=== PATIENT | female | born 1950 | race Caucasian/White ===

== ENCOUNTER 2019-06-07 00:26 | Day surgery (SDC) | payer MEDICARE, SELFPAY ==
[2019-05-27 09:54] VITALS: BMI 32.3
[2019-06-07] VITALS (12 sets, daily range): BP systolic 109–132; BP diastolic 60–77; PULSE 70–96; RESP 12–20; TEMP 36.2–36.4; O2SAT 91–98
[2019-06-07] MEDS: LACTATED RINGERS 1,000 ML 30 ML IV CONT ×2 (06:55→08:37)
--- NOTE | 2019-06-07 06:58 | WPDHPUPDATE1 ---
History and Physical Update Update Date/Time: 06/07/19 06:58 History and Physical has been reviewed, including an updated exam of the patient. There are NO changes in the patient's condition. Risks, benefits, and alternatives have been discussed and questions answered. Patient agrees to proceed with procedure.
--- NOTE | 2019-06-07 07:01 | WPDANESEPPF ---
Anes - Initial Pre Proc Eval Procedure: Operation Date: 06/07/19 07:30 Proposed Procedures p Left Breast Fat Grafting(Left) - Gilmer Dorman MD Date/Time: 06/07/19 07:01 Surgeon: Gilmer Dorman MD Pre Op Diagnosis: Hx Of Breast Ca Patient Data Age: 69 Gender: F Height: 5 ft 4 in Weight: 85.3 kg Allergies Allergy/AdvReac Type Severity Reaction Status Date / Time clindamycin Allergy Mild REDNESS AT Verified 05/27/19 09:36 SITE ampicillin Allergy Unknown Rash Verified 05/27/19 09:36 aspirin Allergy Unknown Rash AND Verified 05/27/19 09:36 UPSET STOMACH codeine Allergy Unknown Rash Verified 05/27/19 09:36 erythromycin base Allergy Unknown Rash Verified 05/27/19 09:36 Penicillins Allergy Unknown Rash Verified 05/27/19 09:36 Dairy Allergy Severe Diarrhea Uncoded 05/27/19 09:36 Home Medications Medication Instructions Recorded Confirmed Type alendronate 70 mg tablet 70 mg PO WEEKLY 05/15/19 05/27/19 History cyanocobalamin (vitamin B-12) 100 mcg SUB-Q MONTHLY 05/15/19 05/27/19 History 1,000 mcg/mL injection solution fluoxetine 40 mg capsule 40 mg PO DAILY 05/15/19 05/27/19 History hydrocodone 5 mg-acetaminophen 325 1 tablet PO Q6H PRN #15 tablet 05/15/19 05/27/19 Rx mg tablet omeprazole 10 mg capsule,delayed 10 mg PO DAILY 05/15/19 05/27/19 History release ondansetron HCl 4 mg tablet 4 mg PO Q6H PRN #30 tablet 05/15/19 05/27/19 Rx amitriptyline 25 mg PO HS 05/27/19 05/27/19 History Patient hx anesthesia problems: none Family hx anesthesia problems: none PMFSH Past Medical History Medical History (Updated 06/07/19 @ 07:02 by Rui Stack MD) Hyperlipidemia Sleep apnea Surgical History Surgical History (Updated 05/15/19 @ 10:15 by Gilmer Dorman MD) H/O left mastectomy History of appendectomy History of cholecystectomy History of ERCP Anes - Eval Final PreProcedure Day of Procedure 06/07/19 07:01 Patient weight: overweight Heart: regular rate and rhythm Lungs: clear to auscultation Airway: Mallampati scale class III Neurological: alert and oriented Last oral intake: >/= 8 hours ASA classification: III Emergent: no Anesthetic plan: proceed Anesthesia type and monitoring: general LMA and standard monitoring Informed Consent: The patient's anesthetic plan and its attendant risks and benefits were discussed with the patient/family/POA. Questions were solicited and answers provided to the satisfaction of the patient/family/POA.
[2019-06-07] MEDS: SCOPOLAMINE 1.5 MG PATCH TRANSDERM (07:20)
[2019-06-07 07:21] LABS: Urine Cotinine NEGATIVE
[2019-06-07] MEDS: ceFAZolin 2 GM/D5W 50 ML 2 GM/50 ML BAG IVPB (07:32)
--- NOTE | 2019-06-07 08:28 | SUR.OPER ---
EBL:5CC
--- NOTE | 2019-06-07 08:44 | P.OP_ITS ---
Procedure Note - Detailed Date of procedure: 06/07/19 Pre-op diagnosis: Hx Of Breast Ca Post-op diagnosis: same Procedure performed: Left breast fat grafting (reconstruction by other method) 130cc Description of procedure: Preoperatively the risks, benefits, alternatives were discussed in extensive detail. I want her to be very realistic about the risks involved as well as expectations. She understands the staged procedure. She understands this is unique procedure with unique risks and unique outcomes. She feels like her last procedure and significant improvement she would like proceed. All questions answered to her and her family satisfaction and consent was obtained. Patient was marked in the preoperative holding area with her verification. She was taken to the operating room placed supine on operating room table. Anesthe chris was provided by anesthesiology and prepped and draped in standard sterile fashion. Surgical time-out was taken. Three separate stab incisions were made with a 16 gauge needle. A completed 1 L of tumescent on the abdomen to give adequate time for hemostasis. Using a multi hole 3 mm cannula for fat grafting suction lipectomy was completed multiple planes and passes and introduced into a gravity separation device. Once we had adequate time for complete separation we took the central portion leaving the inferior fluid and superiorly lipid and only taking adipose tissue. Eleven blade was used to excise the previous scar locations on the breast which was little bit of tattooing dramatically. This was completely removed as well as made an additional port site. I then used a 2.1 mm cannula on multiple planes and passes. The single hole cannula and introduced 130 cc of adipose tissue to the left breast. These sites on the breast were closed with single 5 0 nylon. Dressings were placed as well as an abdominal binder. Patient was woken taken PACU without difficulty. All instrument sponge counts were correct at the end of the case. Anesthesia: GLMA Surgeon: Gilmer Dorman MD Estimated blood loss (mL): 1 Drains: No Packing: No Pathology: none sent Complications: No immediate complications Condition: stable Disposition: PACU
== END 2019-06-07 11:35 | disposition home or self-care (01) ==
PROVIDERS: PCP Internal Medicine; Visit Provider Surgery Plastic and Reconstructive Surgery
PROC: (CPT 15769; principal; 2019-06-07 07:30)
DX: Z42.1 Encounter for breast reconstruction following mastectomy (principal); Z85.3 Personal history of malignant neoplasm of breast; Z90.12 Acquired absence of left breast and nipple; E78.5 Hyperlipidemia, unspecified; G47.30 Sleep apnea, unspecified; Z79.82 Long term (current) use of aspirin; Z79.899 Other long term (current) drug therapy
CPT/HCPCS: 19366; 36415; 80307; A9270; J0171; J0690; J1100; J2250; J2370; J2405; J2704; J3010; J7120

== ENCOUNTER 2019-10-23 00:30 | Outpatient (CLI) | payer MEDICARE, SELFPAY ==
[2019-10-23 18:10] LABS: SARS-CoV-2 RNA PCR Negative
== END 2019-10-23 00:31 | disposition home or self-care (01) ==
LOC: ANHCOVIDDT 00:31
PROVIDERS: Visit Provider Surgery Plastic and Reconstructive Surgery
DX: Z20.828 Contact with and (suspected) exposure to other viral communicable diseases (principal); Z01.812 Encounter for preprocedural laboratory examination
CPT/HCPCS: 87635; C9803; U0003

== ENCOUNTER 2019-10-25 03:22 | Day surgery (SDC) | payer MEDICARE, SELFPAY ==
[2019-10-21 14:01] VITALS: BMI 32.3
--- NOTE | 2019-10-24 11:45 | WPDANESEPPF ---
Anes - Initial Pre Proc Eval Procedure: Operation Date: 10/25/19 07:30 Proposed Procedures p Left Breast Fat Grafting - Gilmer Dorman MD Date/Time: 10/24/19 11:45 Surgeon: Gilmer Dorman MD Pre Op Diagnosis: acquired breast deformity Patient Data Age: 69 Gender: F Height: 5 ft 4 in Weight: 85.5 kg Allergies Allergy/AdvReac Type Severity Reaction Status Date / Time clindamycin Allergy Mild REDNESS AT Verified 10/21/19 13:52 SITE ampicillin Allergy Unknown Rash Verified 10/21/19 13:52 aspirin Allergy Unknown Rash AND Verified 10/21/19 13:52 UPSET STOMACH codeine Allergy Unknown Rash Verified 10/21/19 13:52 erythromycin base Allergy Unknown Rash Verified 10/21/19 13:52 Penicillins Allergy Unknown Rash Verified 10/21/19 13:52 Dairy Allergy Severe Diarrhea Uncoded 10/21/19 13:52 Home Medications Medication Instructions Recorded Confirmed Type alendronate 70 mg tablet 70 mg PO WEEKLY 05/15/19 10/21/19 History cyanocobalamin (vitamin B-12) 100 mcg SUB-Q MONTHLY 05/15/19 10/21/19 History 1,000 mcg/mL injection solution fluoxetine 40 mg capsule 40 mg PO DAILY 05/15/19 10/21/19 History omeprazole 10 mg capsule,delayed 10 mg PO DAILY 05/15/19 10/21/19 History release ondansetron HCl 4 mg tablet 4 mg PO Q6H PRN #30 tablet 05/15/19 10/21/19 Rx amitriptyline 25 mg PO HS 05/27/19 10/21/19 History docusate sodium 100 mg capsule 100 mg PO BID #14 cap 10/16/19 10/21/19 Rx hydrocodone 5 mg-acetaminophen 325 1 tablet PO Q6H PRN #15 tablet 10/16/19 10/21/19 Rx mg tablet Patient hx anesthesia problems: post op nausea/vomiting Family hx anesthesia problems: none Anes - Eval Final PreProcedure Day of Procedure 10/24/19 11:45 Patient weight: normal Heart: regular rate and rhythm Lungs: clear to auscultation Airway: Mallampati scale class III Neurological: alert and oriented Last oral intake: >/= 8 hours ASA classification: III Emergent: no Anesthesia type and monitoring: general LMA and standard monitoring Informed Consent: The patient's anesthetic plan and its attendant risks and benefits were discussed with the patient/family/POA. Questions were solicited and answers provided to the satisfaction of the patient/family/POA.
[2019-10-25] VITALS (15 sets, daily range): BP systolic 118–174; BP diastolic 66–112; PULSE 63–90; RESP 12–18; TEMP 36.1–36.8; O2SAT 92–100
--- NOTE | 2019-10-25 06:35 | WPDHPUPDATE1 ---
History and Physical Update Update Date/Time: 10/25/19 06:35 History and Physical has been reviewed, including an updated exam of the patient. There are NO changes in the patient's condition. Risks, benefits, and alternatives have been discussed and questions answered. Patient agrees to proceed with procedure.
[2019-10-25 06:41] LABS: Urine Cotinine NEGATIVE
[2019-10-25] MEDS: LACTATED RINGERS 1,000 ML 30 ML IV CONT ×2 (06:50→09:02)
[2019-10-25] MEDS: ONDANSETRON INJ 4 MG/2 ML VIAL IV PUSH (07:20)
[2019-10-25] MEDS: SCOPOLAMINE 1.5 MG PATCH TRANSDERM (07:20)
[2019-10-25] MEDS: ceFAZolin 2 GM/D5W 50 ML 2 GM/50 ML BAG IVPB (07:26)
--- NOTE | 2019-10-25 07:29 | PM.PROC ---
Procedure Note - Detailed Date of procedure: 10/25/19 Pre-op diagnosis: acquired breast deformity Post-op diagnosis: same Procedure performed: Fat grafting left breast Description of procedure: Preoperatively the risks, benefits, alternatives were discussed in extensive detail. I want her to be very realistic about the risks involved as well as expectations. She understands the staged procedure. She understands this is unique procedure with unique risks and unique outcomes. She feels like her last procedure and significant improvement she would like proceed. Shewas going to utilize a suction device prior to the procedure however admits she has not been wearing this like she should All questions answered to her and her family satisfaction and consent was obtained. Patient was marked in the preoperative holding area with her verification. She was taken to the operating room placed supine on operating room table. Anesthesia was provided by anesthesiology and prepped and draped in standard sterile fashion. Surgical time-out was taken. Three separate stab incisions were made with a 16 gauge needle. A completed 1 L of tumescent on the abdomen to give adequate time for hemostasis. Using a multi hole 3 mm cannula for fat grafting suction lipectomy was completed multiple planes and passes and introduced into a gravity separation device. Once we had adequate time for complete separation we took the central portion leaving the inferior fluid and superiorly lipid and only taking adipose tissue. Used an 18 guage to make port sites for fat grafting I then used a 2.1 mm cannula on multiple planes and passes. The single hole cannula and introduced adipose tissue to the left breast. Dressings were placed as well as an abdominal binder. Patient was woken taken PACU without difficulty. All instrument sponge counts were correct at the end of the case. Anesthesia: GLMA Surgeon: Gilmer Dorman MD Estimated blood loss (mL): 5 Drains: No Packing: No Pathology: none sent Complications: No immediate complications Condition: stable Disposition: PACU Findings: Suction completed from lower abdomen. 150cc fat infiltrated left breast.
--- NOTE | 2019-10-25 08:53 | SUR.OPER ---
EBL:5cc
--- NOTE | 2019-10-25 09:19 | SUR.PHASEI ---
0905 pt has a welt around the iv site in rt arm, dr woods thinks it is from the zofran that was given in the or, 25mg iv benadryl was given to counteract, no other issues at this time
--- NOTE | 2019-10-25 12:01 | SUR.PHASEII ---
PT GETTING DRESSED WHEN SHE NOTICED LOWER ABDOMINAL BLEEDING. OPEN PUNCTURE NOTED IN MID-LOWER ABDOMEN SITE OF BLEEDING. DR. DAVENPORT NOTIFIED; APPLIED PRESSURE X 10 WHICH STOPPED BLEEDING BUT WHEN PT STOOD UP, BLEEDING RESUMED. REAPPLIED PRESSURE. DR. DAVENPORT NOTIFIED. DR. DAVENPORT WILL EXAMINE PT WHEN OUT OF THE OR IN ABOUT 2 HOURS. REGULAR DIET ORDER OBTAINED. CALLED FOR LUNCH. PT DENIES PAIN. DAUGHTER UPDATED X 4.
--- NOTE | 2019-10-25 15:07 | PM.EVENT ---
Event Note Event Note Event Note: Called to bedside with drainage from abdominal sites. Patient feels well. No CP, no SOB. Feeling well. On exam there is no hematoma, no seroma. No evidence of active bleeding. Pulse normal. Plan for d/c home. Patient knows what to monitor for. Will call with any questions or concerns.
--- NOTE | 2019-10-25 15:46 | SUR.PHASEII ---
1211 LEFT CHEST DRESSING SOAKED WITH DELORIS FLUID; CHANGED. AWAITING DR. POWELL. DAUGHTER UPDATED.
--- NOTE | 2019-10-25 16:03 | SUR.PHASEII ---
0690 DR. BARRETO HERE TO SEE PT. OKAY'D PT TO GO HOME. ALL DRESSINGS CHANGED. LARGE MENSTRUAL PADS TO ABDOMEN.
== END 2019-10-25 14:20 | disposition home or self-care (01) ==
PROVIDERS: Visit Provider Surgery Plastic and Reconstructive Surgery
PROC: (CPT 15769; principal; 2019-10-25 07:30)
DX: Z42.1 Encounter for breast reconstruction following mastectomy (principal); Z85.3 Personal history of malignant neoplasm of breast; Z90.12 Acquired absence of left breast and nipple; E78.5 Hyperlipidemia, unspecified; G47.30 Sleep apnea, unspecified; Z79.899 Other long term (current) drug therapy
CPT/HCPCS: 19366; 36415; 80307; A9270; J0171; J0690; J1100; J1170; J1200; J2250; J2405; J2704; J3010; J7120

== ENCOUNTER 2020-01-29 01:48 | Outpatient (CLI) | payer MEDICARE, SELFPAY ==
[2020-01-29 18:40] LABS: SARS-CoV-2 RNA PCR Negative
== END 2020-01-29 01:49 | disposition home or self-care (01) ==
LOC: ANHCOVIDDT 01:49
PROVIDERS: Visit Provider Surgery Plastic and Reconstructive Surgery
DX: Z01.812 Encounter for preprocedural laboratory examination (principal); Z11.59 Encounter for screening for other viral diseases
CPT/HCPCS: 87635; C9803; U0003

== ENCOUNTER 2020-01-31 00:37 | Day surgery (SDC) | payer MEDICARE, SELFPAY ==
[2020-01-24 09:29] VITALS: BMI 33.5
[2020-01-31] VITALS (9 sets, daily range): BP systolic 111–143; BP diastolic 67–89; PULSE 76–89; RESP 12–20; TEMP 36.3–36.5; O2SAT 93–100
--- NOTE | 2020-01-31 08:33 | WPDANESEPPF ---
Anes - Initial Pre Proc Eval Procedure: Operation Date: 01/31/20 09:30 Proposed Procedures p Left Breast Fat Grafting - Gilmer Dorman MD Date/Time: 01/31/20 08:33 Surgeon: Gilmer Dorman MD Pre Op Diagnosis: hx breast ca Patient Data Age: 70 Gender: F Height: 5 ft 4 in Weight: 87.7 kg Allergies Allergy/AdvReac Type Severity Reaction Status Date / Time ampicillin Allergy Intermediate Rash Verified 01/31/20 08:00 aspirin Allergy Intermediate Rash AND Verified 01/31/20 08:00 UPSET STOMACH codeine Allergy Intermediate Rash Verified 01/31/20 08:00 erythromycin base Allergy Intermediate Rash Verified 01/31/20 08:00 Penicillins Allergy Intermediate Rash Verified 01/31/20 08:00 clindamycin Allergy Mild REDNESS AT Verified 01/31/20 08:00 SITE Dairy Allergy Severe Diarrhea Uncoded 01/31/20 08:00 Home Medications Medication Instructions Recorded Confirmed Type alendronate 70 mg tablet 70 mg PO WEEKLY 05/15/19 01/31/20 History fluoxetine 40 mg capsule 40 mg PO DAILY 05/15/19 01/31/20 History omeprazole 10 mg capsule,delayed 10 mg PO DAILY 05/15/19 01/31/20 History release amitriptyline 25 mg PO HS 05/27/19 01/31/20 History potassium chloride 20 mEq 20 meq PO DAILY 11/27/19 01/31/20 History tablet,extended release(part/cryst) quetiapine 25 mg tablet 25 mg PO PRN PRN tablet 11/27/19 01/31/20 History docusate sodium 100 mg capsule 100 mg PO BID #14 cap 01/20/20 01/24/20 Rx hydrocodone 5 mg-acetaminophen 325 1 tablet PO Q6H PRN #15 tablet 01/20/20 01/24/20 Rx mg tablet ondansetron HCl 4 mg tablet 4 mg PO Q6H PRN #30 tablet 01/20/20 01/24/20 Rx Laboratory Tests 01/31/20 08:13 Cotinine Pending Patient hx anesthesia problems: post op nausea/vomiting Family hx anesthesia problems: none PMFSH Social History Social History Smoking status: Former smoker Additional smoking assessment comments: 1PK/WEEK/30YRS, QUIT 2017 Alcohol intake: never Substance use: never Living arrangements: alone Spiritual care concerns: No Anes - Eval Final PreProcedure Day of Procedure 01/31/20 08:33 Patient weight: normal Heart: regular rate and rhythm Lungs: clear to auscultation Airway: Mallampati scale class III Neurological: alert and oriented Last oral intake: >/= 8 hours ASA classification: III Emergent: no Anesthetic plan: proceed Anesthesia type and monitoring: general LMA and standard monitoring Informed Consent: The patient's anesthetic plan and its attendant risks and benefits were discussed with the patient/family/POA. Questions were solicited and answers provided to the satisfaction of the patient/family/POA.
[2020-01-31] MEDS: SCOPOLAMINE 1.5 MG PATCH TRANSDERM (08:46)
[2020-01-31] MEDS: LACTATED RINGERS 1,000 ML 30 ML IV CONT (08:46)
[2020-01-31 09:27] LABS: Urine Cotinine NEGATIVE
--- NOTE | 2020-01-31 09:53 | WPDHPUPDATE1 ---
History and Physical Update Update Date/Time: 01/31/20 09:53 History and Physical has been reviewed, including an updated exam of the patient. There are NO changes in the patient's condition. Risks, benefits, and alternatives have been discussed and questions answered. Patient agrees to proceed with procedure.
[2020-01-31] MEDS: ceFAZolin 2 GM/D5W 50 ML 2 GM/50 ML BAG IVPB (10:30)
--- NOTE | 2020-01-31 11:52 | PM.PROC ---
Procedure Note - Detailed Date of procedure: 01/31/20 Pre-op diagnosis: hx breast ca Post-op diagnosis: other (1. Aquired left breast deformity. 2. History breast cancer) Procedure performed: Fat grafting left breast (reconstruction by other method). Description of procedure: She was marked in the preoperative holding area with her verification. She was taken to the operating room placed supine on the operating room table. Anesthesia was provided by anesthesiology and prepped and draped in a standard sterile fashion. Surgical time-out was taken. I did a thorough abdominal examination and 14 gauge needle was used to make stab incision. I tumesced the upper abdomen with a tumescent solution. Once adequate time for hemostasis I used a 3 mm multi hole fat grafting cannula connected to suction around 300 mm which was in a gravity separation device. Once adequate time for separation I used just the central portion which completing the adipose tissue. A 2.1 gauge injection cannula was used in the breast. 14 gauge used to make stab incisions. I placed the patientin a more sitting position and then injected in multiple planes and passes distributing the adipose tissue for good take. Dressings were placed. She tolerated the procedure well. I will see her back. Anesthesia: GLMA Surgeon: Gilmer Dorman MD Estimated blood loss (mL): 10 Drains: No Packing: No Pathology: none sent Findings: Lipoaspirate from upper abdomen. Left breast fat grafting 187 cc
[2020-01-31] MEDS: fentaNYL CITRATE INJ (*CRX) 100 MCG/2 ML VIAL 25 MCG IV PUSH ×4 (12:14→12:40)
== END 2020-01-31 14:00 | disposition home or self-care (01) ==
PROVIDERS: Visit Provider Surgery Plastic and Reconstructive Surgery
PROC: (CPT 15769; principal; 2020-01-31 09:30)
DX: Z42.1 Encounter for breast reconstruction following mastectomy (principal); Z85.3 Personal history of malignant neoplasm of breast; Z90.12 Acquired absence of left breast and nipple; E78.5 Hyperlipidemia, unspecified; G47.30 Sleep apnea, unspecified; Z87.891 Personal history of nicotine dependence
CPT/HCPCS: 19366; 80307; A9270; J0131; J0171; J0690; J1100; J1170; J2250; J2405; J2704; J3010; J7120

== ENCOUNTER 2020-05-04 12:34 | Outpatient (CLI) | payer MEDICARE, SELFPAY ==
[2020-05-05 18:44] LABS: SARS-CoV-2 RNA PCR Negative
== END 2020-05-04 12:35 | disposition home or self-care (01) ==
LOC: ANHCOVIDDT 06-09 12:34
PROVIDERS: Visit Provider Surgery Plastic and Reconstructive Surgery
DX: Z01.812 Encounter for preprocedural laboratory examination (principal); Z20.828 Contact with and (suspected) exposure to other viral communicable diseases
CPT/HCPCS: 87635; C9803; U0003

== ENCOUNTER 2020-05-07 00:51 | Day surgery (SDC) | payer MEDICARE, SELFPAY ==
[2020-04-28 09:12] VITALS: BMI 31.8
--- NOTE | 2020-05-05 11:57 | WPDANESEPPF ---
Anes - Initial Pre Proc Eval Procedure: Operation Date: 05/07/20 07:30 Proposed Procedures p Left Breast Fat Grafting - Gilmer Dorman MD Date/Time: 05/05/20 11:57 Surgeon: Gilmer Dorman MD Pre Op Diagnosis: aquired breast deformity Patient Data Age: 70 Gender: F Height: 1.65 m Weight: 87 kg Allergies Allergy/AdvReac Type Severity Reaction Status Date / Time ampicillin Allergy Intermediate Rash Verified 04/28/20 09:04 aspirin Allergy Intermediate Rash AND Verified 04/28/20 09:04 UPSET STOMACH codeine Allergy Intermediate Rash Verified 04/28/20 09:04 erythromycin base Allergy Intermediate Rash Verified 04/28/20 09:04 Penicillins Allergy Intermediate Rash Verified 04/28/20 09:04 clindamycin Allergy Mild REDNESS AT Verified 04/28/20 09:04 SITE Dairy AdvReac Intermediate Diarrhea Uncoded 04/28/20 09:04 Home Medications Medication Instructions Recorded Confirmed Type alendronate 70 mg tablet 70 mg PO WEEKLY 05/15/19 04/28/20 History fluoxetine 40 mg capsule 40 mg PO QAM 05/15/19 04/28/20 History amitriptyline 25 mg PO HS 05/27/19 04/28/20 History quetiapine 25 mg tablet 25 mg PO HS tablet 11/27/19 04/28/20 History hydrocodone 5 mg-acetaminophen 325 1 tablet PO Q6H PRN #15 tablet 04/27/20 04/28/20 Rx mg tablet ondansetron HCl 4 mg tablet 4 mg PO Q6H PRN #30 tablet 04/27/20 04/28/20 Rx calcium carbonate-vitamin D3 2 tablet PO QAM 04/28/20 04/28/20 History [Calcium 500 + D] docusate sodium [Colace] 100 mg PO BID PRN 04/28/20 04/28/20 History lansoprazole [Prevacid] 15 mg PO QAM 04/28/20 04/28/20 History letrozole 2.5 mg PO QAM 04/28/20 04/28/20 History Patient hx anesthesia problems: post op nausea/vomiting Family hx anesthesia problems: none PMFSH Past Medical History Medical History (Updated 05/05/20 @ 11:58 by Will Lisa DO) Anxiety Depression History of breast cancer History of pancreatitis Hyperlipidemia Sleep apnea Surgical History Surgical History (Updated 05/05/20 @ 11:58 by Will Lisa DO) H/O left mastectomy History of appendectomy History of cholecystectomy History of ERCP History of hysterectomy Social History Social History Smoking status: Former smoker Smoking end date: 11/06/15 Additional smoking assessment comments: 1 PACK/WEEK X 40 YEARS Alcohol intake: never Alcohol use details: DRANK LARGE AMTS UNTIL ~2014 Substance use: never Living arrangements: with family Additional living arrangements comments: DAUGHTER & GRANDCHILDREN-TEMPORARILY Spiritual care concerns: No Anes - Eval Final PreProcedure Day of Procedure 05/05/20 11:57 Patient weight: obese Heart: regular rate and rhythm Lungs: clear to auscultation and normal air movement Airway: Mallampati scale class III Neurological: alert and oriented Last oral intake: >/= 8 hours ASA classification: III Emergent: no Anesthetic plan: proceed Anesthesia type and monitoring: general LMA and standard monitoring Informed Consent: The patient's anesthetic plan and its attendant risks and benefits were discussed with the patient/family/POA. Questions were solicited and answers provided to the satisfaction of the patient/family/POA.
[2020-05-07] VITALS (8 sets, daily range): BP systolic 116–137; BP diastolic 64–82; PULSE 77–102; RESP 12–18; TEMP 36.1–36.8; O2SAT 97–99; BMI 31.6
[2020-05-07] MEDS: LACTATED RINGERS 1,000 ML 30 ML IV CONT ×2 (06:57→08:51)
[2020-05-07] MEDS: SCOPOLAMINE 1.5 MG PATCH TRANSDERM (07:01)
--- NOTE | 2020-05-07 07:05 | SUR.PREOP ---
DR BARRETO MARKING PT, STAFF IN ROOM
--- NOTE | 2020-05-07 07:09 | WPDHPUPDATE1 ---
History and Physical Update Update Date/Time: 05/07/20 07:09 History and Physical has been reviewed, including an updated exam of the patient. There are NO changes in the patient's condition. Risks, benefits, and alternatives have been discussed and questions answered. Patient agrees to proceed with procedure.
--- NOTE | 2020-05-07 07:10 | PM.PROC ---
Procedure Note - Detailed Date of procedure: 05/07/20 Pre-op diagnosis: aquired breast deformity Post-op diagnosis: same Procedure performed: Fat grafting to left breast has other reconstructive method 230 cc Description of procedure: Patient was marked in the preoperative holding area with her verification. She was taken to the operating room placed supine on the operating room table. Anesthesia was provided by anesthesiology and she was prepped and draped in a standard sterile fashion. Surgical time-out was taken. I did a thorough abdominal examination. Stab incisions were made with a 14 gauge needle and I tumesced with a tumescent solution. Once adequate time for hemostasis using a 3 mm multi hole suction cannula I completed suction lipectomy of abdomen and flank as necessary to obtain the desired volume for injection. We will add adequate time with gravity separation to provide the central portion of adipose tissue getting rid of the aqueous and lipid layers. 14 gauge needle was used to make stab incisions left breast. Completing multiple planes and passes fat grafting was completed the breast using a 3 mm cannula. She tolerated the procedure well. Dressings were placed. She was woken taken to the PACU without difficulty. All instrument sponge counts were correct at the end of the case. Anesthesia: GLMA Surgeon: Gilmer Dorman MD Estimated blood loss (mL): 5 Drains: No Packing: No Pathology: none sent Complications: No immediate complications Condition: stable Disposition: PACU Findings: Lipoaspirate 700 from abdomen / flank Fat grafting left breast 230
[2020-05-07 07:18] LABS: Urine Cotinine NEGATIVE
[2020-05-07] MEDS: ceFAZolin 2 GM/D5W 50 ML 2 GM/50 ML BAG IVPB (07:28)
[2020-05-07] MEDS: HYDROcodone/acetaminophen (*CRX) 5-325 MG TABLET 1 TAB PO (10:31)
== END 2020-05-07 11:00 | disposition home or self-care (01) ==
PROVIDERS: Visit Provider Surgery Plastic and Reconstructive Surgery
PROC: (CPT 15769; principal; 2020-05-07 07:30)
DX: Z42.1 Encounter for breast reconstruction following mastectomy (principal); N64.89 Other specified disorders of breast; Z85.3 Personal history of malignant neoplasm of breast; Z90.12 Acquired absence of left breast and nipple; E78.5 Hyperlipidemia, unspecified; G47.30 Sleep apnea, unspecified; F41.8 Other specified anxiety disorders; Z87.891 Personal history of nicotine dependence; Z79.899 Other long term (current) drug therapy; E66.9 Obesity, unspecified; Z68.31 Body mass index [BMI] 31.0-31.9, adult
CPT/HCPCS: 19366; 80307; A9270; J0171; J0690; J1100; J2250; J2405; J2704; J3010; J7120

== ENCOUNTER → 2020-08-25 03:30 | Outpatient (CLI) | payer MEDICARE, SELFPAY ==
[2020-08-25 20:30] LABS: SARS-CoV-2 RNA PCR Negative
== END ==
PROVIDERS: Visit Provider Surgery Plastic and Reconstructive Surgery
DX: Z01.812 Encounter for preprocedural laboratory examination (principal); Z20.822 Contact with and (suspected) exposure to COVID-19
CPT/HCPCS: C9803; U0003; U0005

== ENCOUNTER 2020-08-28 01:25 | Day surgery (SDC) | payer MEDICARE, SELFPAY ==
[2020-08-14 15:27] VITALS: BMI 30.3
[2020-08-28] VITALS (13 sets, daily range): BP systolic 93–139; BP diastolic 46–76; PULSE 69–102; RESP 14–20; TEMP 36–37.4; O2SAT 91–100; BMI 29.7
[2020-08-28 13:42] LABS: Urine Cotinine NEGATIVE
[2020-08-28] MEDS: LACTATED RINGERS 1,000 ML 30 ML IV CONT ×2 (13:57→16:45)
--- NOTE | 2020-08-28 14:18 | SUR.PREOP ---
STAFF IN ROOM WITH DR BARRETO WHILE HE DICKSON PT
--- NOTE | 2020-08-28 14:18 | WPDHPUPDATE1 ---
History and Physical Update Update Date/Time: 08/28/20 14:18 History and Physical has been reviewed, including an updated exam of the patient. There are NO changes in the patient's condition. Risks, benefits, and alternatives have been discussed and questions answered. Patient agrees to proceed with procedure.
--- NOTE | 2020-08-28 14:39 | PM.PROC ---
Procedure Note - Detailed Date of procedure: 08/28/20 Pre-op diagnosis: Hx of Breast CA Acquired breast deformity Post-op diagnosis: same Procedure performed: Fat grafting left breast 280cc Description of procedure: Patient was marked in the preoperative holding area with her verification. She was taken to the operating room. Anesthesia was provided by anesthesiology. She was placed in a prone position with care taken to protect all bony prominences. Prepped and draped in a standard sterile fashion. Surgical time-out was taken. Stab incisions were made with a 14 gauge needle and I tumesced with a tumescent solution. Once adequate time for hemostasis using a 3 mm multi hole suction cannula I completed suction lipectomy of the back / flank as necessary to obtain the desired volume for injection. We will add adequate time with gravity separation to provide the central portion of adipose tissue getting rid of the aqueous and lipid layers. She was transferred supine. Prepped and draped in standard sterile fashion. 14 gauge needle was used to make stab incisions left breast. Completing multiple planes and passes fat grafting was completed the breast using a 3 mm cannula. She tolerated the procedure well. Dressings were placed. She was woken taken to the PACU without difficulty. All instrument sponge counts were correct at the end of the case. Surgeon: Gilmer Dorman MD Estimated blood loss (mL): 10 Drains: No Packing: No Pathology: none sent Complications: No immediate complications Condition: stable Disposition: PACU
--- NOTE | 2020-08-28 15:06 | WPDANESEPPF ---
Anes - Initial Pre Proc Eval Procedure: Operation Date: 08/28/20 15:30 Proposed Procedures p Left Breast Fat Graft - Gilmer Dorman MD Date/Time: 08/28/20 15:06 Surgeon: Gilmer Droman MD Pre Op Diagnosis: Hx of Breast CA Patient Data Age: 70 Gender: F Height: 5 ft 5 in Weight: 81.2 kg Last Vital Signs Temp 99.3 F 08/28/20 13:28 Pulse 69 08/28/20 13:28 Resp 18 08/28/20 13:28 BP 139/76 08/28/20 13:28 Pulse Ox 98 08/28/20 13:28 Allergies Allergy/AdvReac Type Severity Reaction Status Date / Time ampicillin Allergy Intermediate Hives Verified 08/28/20 13:18 aspirin Allergy Intermediate Rash AND Verified 08/17/20 14:50 UPSET STOMACH codeine Allergy Intermediate Rash Verified 08/17/20 14:50 erythromycin base Allergy Intermediate Rash Verified 08/17/20 14:50 Penicillins Allergy Intermediate Hives Verified 08/28/20 13:18 Dairy AdvReac Intermediate Diarrhea Uncoded 08/14/20 15:00 Home Medications Medication Instructions Recorded Confirmed Type alendronate 70 mg tablet 70 mg PO WEEKLY 05/15/19 08/28/20 History fluoxetine 40 mg capsule 40 mg PO QAM 05/15/19 08/28/20 History hydrocodone 5 mg-acetaminophen 325 1 tablet PO Q6H PRN #15 tablet 04/27/20 08/28/20 Rx mg tablet ondansetron HCl 4 mg tablet 4 mg PO Q6H PRN #30 tablet 04/27/20 08/28/20 Rx calcium carbonate-vitamin D3 2 tablet PO QAM 04/28/20 08/28/20 History [Calcium 500 + D] docusate sodium [Colace] 100 mg PO BID PRN 04/28/20 08/28/20 History lansoprazole [Prevacid] 15 mg PO QAM 04/28/20 08/28/20 History letrozole 2.5 mg PO QAM 04/28/20 08/28/20 History Bifidobacterium infantis [Align] 4 mg PO DAILY 08/14/20 08/28/20 History trazodone 25 mg PO HS 08/14/20 08/28/20 History Laboratory Tests 08/28/20 13:13 Cotinine Negative Patient hx anesthesia problems: none Family hx anesthesia problems: none [facility] Past Medical History Medical History Anxiety Depression History of breast cancer History of pancreatitis Hyperlipidemia Sleep apnea Surgical History Surgical History H/O left mastectomy History of appendectomy History of cholecystectomy History of ERCP History of hysterectomy Social History Social History Years smoked: 40 Smoking status: Former smoker Tobacco type: cigarettes Smoking end date: 05/08/09 Additional smoking assessment comments: 1 PACK/WEEK X 40 YEARS Alcohol intake: never Substance use: never Living arrangements: with family Additional living arrangements comments: DAUGHTER & GRANDCHILDREN-TEMPORARILY Spiritual care concerns: No Anes - Eval Final PreProcedure Day of Procedure 08/28/20 15:06 Patient weight: overweight Heart: regular rate and rhythm Lungs: clear to auscultation Airway: Mallampati scale class III Neurological: alert and oriented Last oral intake: >/= 8 hours ASA classification: III Emergent: no Anesthetic plan: proceed Anesthesia type and monitoring: general LMA and standard monitoring Informed Consent: The patient's anesthetic plan and its attendant risks and benefits were discussed with the patient/family/POA. Questions were solicited and answers provided to the satisfaction of the patient/family/POA.
[2020-08-28] MEDS: CLINDAMYCIN 900 MG/D5W 50 ML 900 MG/50 ML PIGGYBACK 50 MG IVPB (15:08)
[2020-08-28] MEDS: LACTATED RINGERS IRRIG 1,000 ML, LIDOCAINE HCL 1% LOCAL INJ 50 ML, EPINEPHrine HCL INJ ... XX (15:42)
--- NOTE | 2020-08-28 17:26 | SUR.PHASEI ---
O2 removed at 1720.
[2020-08-28] MEDS: MEPERIDINE HCL INJ (*CRX) 50 MG/ML AMPUL 25 MG IV PUSH (17:28)
[2020-08-28] MEDS: fentaNYL CITRATE INJ (*CRX) 100 MCG/2 ML VIAL 25 MCG IV PUSH (17:47)
[2020-08-28] MEDS: oxyCODONE HCL (*CRX) 5 MG TAB IR PO (18:37)
--- NOTE | 2020-08-28 19:35 | SUR.PHASEII ---
1935- Dr. Dorman to bedside to assess patient's back wounds, drainage and dressings. Per Dr. Dorman drainage is expected with the procedure and tumescent used in the case and site looks good. Patient verbalized understanding that wound would have drainage.
== END 2020-08-28 19:40 | disposition home or self-care (01) ==
PROVIDERS: Visit Provider Surgery Plastic and Reconstructive Surgery
PROC: (CPT 15769; principal; 2020-08-28 15:30)
DX: Z42.1 Encounter for breast reconstruction following mastectomy (principal); Z85.3 Personal history of malignant neoplasm of breast; Z90.12 Acquired absence of left breast and nipple; E78.5 Hyperlipidemia, unspecified; G47.30 Sleep apnea, unspecified; F41.8 Other specified anxiety disorders; Z87.891 Personal history of nicotine dependence; Z79.899 Other long term (current) drug therapy
CPT/HCPCS: 19380; 15771; 15772 ×5; 80307; A9270; C9803; J0171; J0330; J1100; J2175; J2250; J2405; J2704; J3010; J7120; U0003; U0005

== ENCOUNTER 2020-12-31 00:56 | Day surgery (SDC) | payer MEDICARE, SELFPAY ==
--- NOTE | 2020-12-30 13:47 | WPDANESEPPF ---
Anes - Initial Pre Proc Eval Procedure: Operation Date: 12/31/20 12:00 Proposed Procedures p Left Breast Fat Graft - Gilmer Dorman MD Date/Time: 12/30/20 13:47 Surgeon: Gilmer Dorman MD Pre Op Diagnosis: aquired breast deformity Patient Data Age: 70 Gender: F Height: 1.65 m Weight: 82 kg Allergies Allergy/AdvReac Type Severity Reaction Status Date / Time ampicillin Allergy Intermediate Hives/itchi Verified 12/31/20 10:25 ng aspirin Allergy Intermediate Rash/upset Verified 12/31/20 10:25 stomach/itching codeine Allergy Intermediate Rash Verified 12/31/20 10:25 erythromycin base Allergy Intermediate Rash/Itchin Verified 12/31/20 10:25 g Penicillins Allergy Intermediate Hives/itchi Verified 12/31/20 10:25 ng Dairy AdvReac Intermediate Diarrhea Uncoded 12/31/20 10:25 Home Medications Medication Instructions Recorded Confirmed Type alendronate 70 mg tablet 70 mg PO WEEKLY 05/15/19 12/31/20 History fluoxetine 40 mg capsule 40 mg PO QAM 05/15/19 12/31/20 History letrozole 2.5 mg PO QAM 04/28/20 12/31/20 History Align 4 mg PO DAILY 08/14/20 12/31/20 History trazodone 25 mg PO HS 08/14/20 12/31/20 History docusate sodium 100 mg capsule 100 mg PO BID PRN #14 cap 12/16/20 12/22/20 Rx hydrocodone 5 mg-acetaminophen 325 1 tablet PO Q6H PRN #15 tablet 12/16/20 12/22/20 Rx mg tablet ondansetron HCl 4 mg tablet 4 mg PO Q6H PRN #30 tablet 12/16/20 12/22/20 Rx omeprazole 20 mg BID 12/22/20 12/31/20 History Patient hx anesthesia problems: none Family hx anesthesia problems: none [facility] Past Medical History Medical History Anxiety Depression History of breast cancer History of pancreatitis Hyperlipidemia Sleep apnea Surgical History Surgical History H/O left mastectomy History of appendectomy History of cholecystectomy History of ERCP History of hysterectomy Social History Social History Years smoked: 40 Smoking status: Never smoker Tobacco type: cigarettes Second hand tobacco smoke exposure: No Smoking end date: 05/08/09 Additional smoking assessment comments: 1 PACK/WEEK X 40 YEARS Alcohol intake: never Alcohol use details: DRANK LARGE AMTS UNTIL ~2014 Substance use: never Substance use type: does not use Living arrangements: with family Additional living arrangements comments: DAUGHTER & GRANDCHILDREN-TEMPORARILY Spiritual care concerns: No Anes - Eval Final PreProcedure Day of Procedure 12/30/20 13:47 Patient weight: obese Heart: regular rate and rhythm Lungs: clear to auscultation and normal air movement Airway: Mallampati scale class II Neurological: alert and oriented Last oral intake: >/= 8 hours ASA classification: III Emergent: no Anesthetic plan: proceed Anesthesia type and monitoring: general LMA Informed Consent: The patient's anesthetic plan and its attendant risks and benefits were discussed with the patient/family/POA. Questions were solicited and answers provided to the satisfaction of the patient/family/POA.
[2020-12-31] VITALS (11 sets, daily range): BP systolic 110–163; BP diastolic 60–98; PULSE 66–107; RESP 10–20; TEMP 36.3–37.1; O2SAT 91–100
[2020-12-31 10:36] LABS: Urine Cotinine NEGATIVE
[2020-12-31] MEDS: LACTATED RINGERS 1,000 ML 30 ML IV CONT ×2 (10:45→14:16)
--- NOTE | 2020-12-31 11:21 | WPDHPUPDATE1 ---
History and Physical Update Update Date/Time: 12/31/20 11:21 History and Physical has been reviewed, including an updated exam of the patient. There are NO changes in the patient's condition. Risks, benefits, and alternatives have been discussed and questions answered. Patient agrees to proceed with procedure.
--- NOTE | 2020-12-31 11:43 | P.OP_ITS ---
Procedure Note - Detailed Date of Procedure 12/31/20 Pre-op Diagnosis aquired breast deformity Post-op Diagnosis same Procedure Performed Left breast fat grafting 350 cc Surgeon Gilmer Dorman MD Anesthesia general Findings [place] from abdomen / flanks Description of Procedure Patient was marked in the preoperative holding area with her verification. We identified the areas for suction lipectomy and her desires. She was taken to the operating room placed supine on the operating room table. Anesthesia was provided by anesthesiology and she was prepped and draped in a standard sterile fashion. Surgical time-out was taken. I did a thorough abdominal examination. Stab incisions were made with a 14 gauge needle and I tumesced with a tumescent solution. Once adequate time for hemostasis using a 3 mm multi hole suction cannula I completed suction lipectomy of abdomen and flank as necessary to obtain the desired volume for injection. We allowed adequate time with gravity separation to provide the central portion of adipose tissue getting rid of the aqueous and lipid layers. 14 gauge needle was used to make stab incisions left breast. Completing multiple planes and passes fat grafting was completed the breast using a 3 mm cannula. She tolerated the procedure well. Dressings were placed. She was woken taken to the PACU without difficulty. All instrument sponge counts were correct at the end of the case. Estimated Blood Loss 20 Drains No Packing No Pathology none sent Complications No immediate complications Condition stable Disposition PACU
[2020-12-31] MEDS: LACTATED RINGERS IRRIG 1,000 ML, LIDOCAINE HCL 1% LOCAL INJ 50 ML, EPINEPHrine HCL INJ ... INFILTRATE (12:01)
[2020-12-31] MEDS: ceFAZolin 2 GM/D5W 50 ML 2 GM/50 ML BAG IVPB (12:01)
[2020-12-31] MEDS: fentaNYL CITRATE INJ (*CRX) 100 MCG/2 ML VIAL 25 MCG IV PUSH ×3 (14:26→14:54)
[2020-12-31] MEDS: ONDANSETRON INJ 4 MG/2 ML VIAL IV PUSH (14:26)
[2020-12-31] MEDS: SCOPOLAMINE 1.5 MG PATCH TRANSDERM (14:30)
[2020-12-31] MEDS: HYDROmorphone HCL INJ (*CRX) 1 MG/ML SYR 0.5 MG IV PUSH ×2 (15:09→15:28)
[2020-12-31] MEDS: oxyCODONE HCL (*CRX) 5 MG TAB IR PO (16:29)
== END 2020-12-31 17:10 | disposition home or self-care (01) ==
PROVIDERS: Visit Provider Surgery Plastic and Reconstructive Surgery
PROC: (CPT 15769; principal; 2020-12-31 12:00)
DX: N64.89 Other specified disorders of breast (principal); Z85.3 Personal history of malignant neoplasm of breast; Z90.12 Acquired absence of left breast and nipple; E78.5 Hyperlipidemia, unspecified; G47.30 Sleep apnea, unspecified; F41.8 Other specified anxiety disorders
CPT/HCPCS: 15771; 15772 ×6; 80307; A9270; J0171; J0690; J1100; J1170; J2405; J2704; J3010; J7120